=== PATIENT | female | born 1940 | race Caucasian/White ===

== ENCOUNTER → 2017-03-12 | Outpatient (CLI) | payer OTHER ==
[~2017-03-12] MED LIST: ALBUAER2 INH; ASPCH81X PO; BTH25 PO; CHOL1CAP57 PO; DOXA2TAB PO; EVS60 PO; GABA-112 PO; GLC/500 PO; HYDR-5688 PO; LEVO75TA PO; MULT-506 PO; OMEG10007 PO; SIMV10TA2 PO; SYMIN/8045 INH; [UNRECOGNIZED DRUG - CODE] PO
[2017-03-12 14:13] VITALS: BP 128/76; PULSE 74; TEMP 36.6; O2SAT 96
--- NOTE | 2017-03-12 15:07 | Radiation Oncology Follow-Up ---
Radiation Oncology Follow-Up Date of Visit Mar 12, 2017. Reason For Visit Annual follow-up Radiation Completion Date Hypo - 08/09/13 Diagnosis (1) Carcinoma in situ of breast Status: Resolved Onset Date: 06/03/2013 Stage: 0 Permanent Comment: Abnormal right breast 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, stage [id number] Status post completion of radiation therapy utilizing hypo-fractionation completed 08/09/2013 received 5006 cGy Last Edited By: Joann Elliott on Mar 22, 2015 16:00 History of Present Illness Ms. Edwards is a 77-year-old female who has been followed with serial mammograms. On October 29, 2011the patient underwent a mammogram that showed suspicious calcifications in the right breast. Recommendation was that this be repeated in approximately 6 months. On April 29, 2013 the patient underwent a repeat screening mammogram. In the right breast greater than 10 punctate and round calcifications are distributed in a cluster with some linearity present at the 3:00 posterior depth position. The left breast is unremarkable. These were felt to be suspicious and given a BI-RAD code 4B with recommended biopsy. The patient was seen by Dr. Scout Leach for evaluation and treatment recommendations. He agreed with the recommendation of a needle biopsy. This was performed on June 03. Localization lumpectomy was ultimately performed. This confirmed a high-grade DCIS with comedonecrosis. The high-grade DCIS was noted to be extensively distributed in the tissue and extends multiple centimeters as measured on a glass slide. It was present in 7-16 out of 20 blocks en toto. An infiltrating carcinoma was seen. The margin was free but close at 0.5 cm. Estrogen receptors were taken and were positive. Progesterone receptors were evaluated and were positive. Case [id number]. 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 The patient returned to discuss adjuvant treatment options with Dr. Leach. She is not a candidate for hormonal therapy. He had asked that we see this patient in referral to evaluate her as a candidate for accelerated partial breast irradiation. She will return to our office for CT simulation. She was found to be a good candidate for hypo-fractionation. Interim History She's been doing well over this past year. She has noted no changes to her breast. She has noticed no masses or tenderness and no change of the axilla. She has noticed no swelling of her arm. She is up-to-date on mammography. She had a mammogram at [facility] 05/13/2016. This was negative with no evidence of malignancy. Normal interval follow-up was recommended in 12 months. BI-RADS Category 1. Allergies Coded Allergies: Niacin (Verified Allergy, Unknown, FLUSHING AND DIZZINESS, 11/13/15) Amoxicillin (Verified Adverse Reaction, Intermediate, UTI'S, 01/15/12) Home Medications Scheduled Aspirin (Aspirin Chewable), 81 MG PO DAILY Bethanechol Chl (Bethanechol Chloride), 50 MG PO DIRECTED Cholecalciferol (Vitamin D3), 1,000 MG PO DAILY Doxazosin Mesylate (Cardura), 1 MG PO HS Fish Oil ([place]-3), 2 CAP PO DAILY Gabapentin (Neurontin), 100 MG PO TID Levothyroxine Sodium (Synthroid), 0.5 TAB PO 1 x weekly Metformin Hcl (Glucophage), 500 MG PO DAILY Raloxifene (Evista *), 60 MG PO DAILY Simvastatin (Zocor), 1 TAB PO HS Scheduled PRN Albuterol (Ventolin Hfa), 2 PUFF INH QID PRN for Cough Budesonide/Formoterol Fumarate (Symbicort 80/4.5 Inhaler), 2 PUFFS INH BID PRN for Cough Hydrocodone/Acetaminophen 5MG/325MG ([place] 5MG/325MG), 1-2 TABLET PO q 4-6hrs prn PRN Levothyroxine Sodium (Synthroid), 1 TAB PO DAILY PRN for 6 x weekly Naproxen (Naproxen Ec), 1 TAB PO DAILY PRN for Pain Miscellaneous Medications Multivitamin (Multivitamin), 1 TAB PO Review of Systems Gastrointestinal: Symptoms: WNL Oral: Symptoms: No Problems Respiratory: Symptoms: WNL Urinary: Symptoms: WNL Comments: Trouble starting urinating in AM - drips Skin: Symptoms: No Problems Breast: Right Upper Arm Measurement: 33.8 Right Mid Arm Measurement: 26.7 Right Wrist Measurement: 17.7 Left Upper Arm Measurement: 36.7 Left Mid Arm Measurement: 27.8 Left Wrist Measurement: 17.5 Arm Dominence: Right Physical Exam Vital Signs Date Time Temp Pulse Resp B/P (MAP) Pulse Ox O2 Delivery O2 Flow Rate FiO2 03/12/17 14:13 36.6 74 16 128/76 96 Fatigue: None General Appearance: no apparent distress Eyes: normal inspection, EOMI ENT: normal ENT inspection, hearing grossly normal Neck: no adenopathy Respiratory/Chest: lungs clear, no respiratory distress, no accessory muscle use Breast: Breast examination reveals well-healed incision of the right breast. There are no masses or tenderness no axillary adenopathy. There are mild fibrous changes in the area of the incision. There is no telangiectasia. Using the Drake score cosmesis she has a good outcome. The left pressure no masses or tenderness and no axillary adenopathy. Cardiovascular: regular rate, rhythm, no gallop, no murmur Extremities: no pedal edema Neurologic/Psychiatric: no motor/sensory deficits, alert, normal mood/affect Skin: warm/dry Assessment & Plan Plan: Continue regular follow-up with Dr. Leach and Dr. Clay. Continue with scheduled mammography. Patient had requested to continue follow-up with Dr. Clay and Dr. Leach at this point in time. We were in agreement. A follow- up appointment with our office was not given. She may call if she has any questions or concerns. Total Time In Follow-Up I spent 20 minutes speaking to the patient and performing examination. I spoke 15 minutes reviewing information and completing this note. Copy To Scout Leach M.D.; Anuj Ramos M.D. Problem Qualifiers (1) Carcinoma in situ of breast: Laterality: right
== END | disposition home or self-care (01) ==
LOC: C.ONC 14:09
PROVIDERS: ATTEND Physician Assistant Medical
DX: Z08 Encounter for follow-up examination after completed treatment for malignant neoplasm (principal); Z92.3 Personal history of irradiation; Z85.3 Personal history of malignant neoplasm of breast

== ENCOUNTER → 2017-06-03 | Outpatient (CLI) | payer OTHER ==
--- NOTE | 2017-06-03 16:37 | DIAGNOSTIC IMAGING REPORT ---
MRI LUMBAR SPINE W/O CONTRAST CLINICAL HISTORY: Persistent low back pain with bilateral leg radiculopathy. TECHNIQUE: Sagittal and axial T1, T2 and STIR images were obtained. COMPARISON STUDY: No previous studies for comparison. OBSERVATIONS: The vertebral bodies and posterior elements appear intact. There is no abnormal bony signal present to suggest a marrow replacement process. L1-2: There is a circumferential disc bulge present. There is minimal spinal canal narrowing. There is mild left-sided foraminal narrowing L2-3: There is a circumferential disc bulge and small central disc protrusion. This mildly effaces the anterior aspect the thecal sac. There is mild spinal stenosis. There is no significant foraminal narrowing L3-4: There is a circumferential disc bulge present. There is moderate to severe spinal stenosis. There is bilateral foraminal narrowing. L4-5: There is a circumferential disc bulge present. There is moderate spinal stenosis. There is severe left-sided foraminal narrowing and mild right-sided foraminal narrowing. L5-S1: There is a circumferential disc bulge. There is advanced facet joint arthropathy. There is mild to moderate spinal stenosis. There is no significant foraminal narrowing. Right-sided facet joint spurs likely impinge on the right S1 nerve root. The conus medullaris and cauda equina appear normal. IMPRESSION: Advanced multilevel spondylitic changes with multilevel spinal stenosis. The stenosis is moderate at the L4-5 and L5-S1 levels. The stenosis is moderate to severe at the L3-4 level. There is multilevel foraminal narrowing, which is severe on the left at the L4-5 level.. At the L5-S1 level, right-sided facet joint spurs likely impinge on the right S1 nerve root. Electronically signed by: Andres Medina M.D. 06/03/2017 4:35 PM Dictated Date/Time: 06/03/2017 4:24 PM
== END | disposition home or self-care (01) ==
LOC: C.MRIBC 15:12
PROVIDERS: ATTEND Physician Assistant
DX: M54.5 Low back pain (principal); M48.061 Spinal stenosis, lumbar region without neurogenic claudication; M48.07 Spinal stenosis, lumbosacral region; M47.816 Spondylosis without myelopathy or radiculopathy, lumbar region

== ENCOUNTER → 2017-12-07 | Outpatient (CLI) | payer OTHER ==
--- NOTE | 2017-12-07 13:14 | DIAGNOSTIC IMAGING REPORT ---
ANKLE BRACHIAL INDEX COMPLETE CLINICAL HISTORY: OTHER ATHEROSCLEROSIS OF [place] ARTERIES COMPARISON STUDY: None. FINDINGS: The right ankle-brachial index measured with the posterior tibial artery was 0.98 and the dorsalis pedis artery was 0.95. The left ankle-brachial index measured with the posterior tibial artery 1.04 and the dorsalis pedis artery was 1.02. IMPRESSION: Normal bilateral ankle brachial indices as described above. Electronically signed by: Og Bahena M.D. 12/07/2017 1:12 PM Dictated Date/Time: 12/07/2017 1:12 PM
== END | disposition home or self-care (01) ==
LOC: C.ULTR 12:23
PROVIDERS: ATTEND Podiatrist Foot & Ankle Surgery
DX: I70.293 Other atherosclerosis of native arteries of extremities, bilateral legs (principal)

== ENCOUNTER 2021-05-17 12:05 | Inpatient (IN) ==
--- NOTE | 2021-05-17 13:50 | Emergency Department Note ---
Impression & Plan Acute hypoxemic respiratory failure, UTI (urinary tract infection), Closed rib fracture ED Provider Note NAME: JOSE A CURIEL AGE: 81 SEX: F : 1940 ARRIVES VIA: Walk-In INFORMANT: Patient, ED PROVIDER(S): Anson Garcia MD Chief Complaint: Cough, short of breath HPI: Patient does presents with headache shortness of breath and productive cough that began about 1 week prior. The patient did have a fall that time striking her left chest. The patient does not take blood thinning medications. Patient denies any fevers or chills. Patient is a non-smoker. The patient is vaccinated for Covid. The patient states that she has no known sick contacts. Patient has had nausea but without vomiting. Patient has had decreased appetite. Patient does have a sick treated shortness of breath. Patient denies history of VTE or PE the patient has no prior history of heart or lung disease. Patient does not complain of lower extremity edema. No recent surgeries or hospitalizations. ROS: See HPI for pertinent positives and negatives. A total of 10 systems were reviewed and otherwise negative. Past medical history: See below Surgical history: See below Social history: See below Physical Exam: GENERAL: NAD, non-toxic. EYE EXAM: Normal conjunctiva. PERRL, no anisocoria and EOM's grossly intact w/o pain. NECK: Supple, no nuchal rigidity, no adenopathy, non-tender. No signs of meningismus. Chest: Mild reproducible lower costal margin pain. LUNGS: Sonorous breath sounds throughout. Normal chest wall mechanics. HEART: NSR, no MRG. ABDOMEN: Abdomen soft, non-tender, normo-active bowel sounds, no masses, no rebound or guarding. BACK: No CVA TTP. SKIN: No rashes and no bruising. UPPER EXTREMITIES: Upper extremities are grossly normal. LOWER EXTREMITIES: Grossly normal, no edema. NEURO EXAM: A&O x3, cranial nerves II-XII grossly intact, normal speech, moves all 4 extremities on command w/o issue. Differential diagnoses: Reactive airway disease, pneumonia, pneumothorax, COPD, CHF, infections, cardiac ischemia, pulmonary embolism, musculoskeletal, gastrointestinal, as well as other pathologies. Course: Patient was seen and evaluated the bedside. Full history physical exam was performed. EKG interpreted by me Normal sinus rhythm, rate 85, normal intervals, normal axis. Imaging Studies: See Below Cardiac monitoring: An order was placed for continuous cardiac monitoring. The monitor shows a rate of 95 with sinus rhythm. MDM: Patient was seen due to concern for cough and shortness of breath. Blood work is obtained along with a chest x-ray and with swab. The patient was hypoxemic to 82% was placed on 4 L nasal cannula. Patient is white count of 7 with a normal H&H and platelet count. The patient's kidney function is unremarkable. Calcium slightly low at 8.1. Troponin is not detectable. Patient's EKG does not show any obvious ischemic changes. The patient does have bacteria whites and leuks along with positive nitrites. Patient may have more atelectasis based on chest x-ray but will cover for urine and chest with Rocephin. The patient was also ordered doxycycline for community-acquired pneumonia coverage. Given the patient's oxygen requirement I did speak with the on-call hospitalist and the patient was admitted to the medicine service. Critical Care: I have personally spent 47 minutes of critical care time in direct management of this patient. This includes bedside care, interpretation of diagnostic studies, and testing, discussion with consultants, patient, and family members, and other require inpatient management activities. This 47 minutes is in excess of all separately billable procedures. Past Med/Surg History Medical History Carcinoma in situ of breast (06/03/13) "Abnormal right breast 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, stage pTisNX Status post completion of radiation therapy utilizing hypo-fractionation completed 08/09/2013 received 5006 cGy " Colon cancer HLD (hyperlipidemia) Osteoarthritis Thyroid cancer Surgical History H/O thyroidectomy History of bladder surgery History of cataract surgery History of cholecystectomy History of colon resection History of hysterectomy Family History Mother Colorectal cancer Other Diabetes Social History Smoking Status: Never smoker Hx Alcohol Use: No Hx Substance Use: No Preferred Language: [place] Feels Safe at Home: Yes Allergies Allergies Allergy/AdvReac Type Severity Reaction Status Date / Time niacin Allergy Unknown FLUSHING Verified 07/07/19 14:19 AND DIZZINESS amoxicillin AdvReac Intermediate UTI'S Verified 07/07/19 14:19 Home Meds Home Medications Medication Instructions Recorded Confirmed ascorbate calcium (vitamin C) 500 500 mg PO DAILY 07/07/19 05/17/21 mg tablet bethanechol chloride 50 mg tablet 50 mg PO TID tab 07/07/19 05/17/21 diclofenac sodium 1 % topical gel 2 gm TOP .COMPLEX 07/07/19 05/17/21 (Voltaren) duloxetine 20 mg capsule,delayed 20 mg PO DAILY cap 07/07/19 05/17/21 release gabapentin 300 mg tablet 300 mg PO UD 07/07/19 05/17/21 levothyroxine 150 mcg tablet 150 mcg PO DAILY 07/07/19 05/17/21 multivitamin (Daily Multi-Vitamin) 1 tab PO DAILY 07/07/19 05/17/21 omega-3 fatty acids 1,000 mg 1,000 mg PO DAILY 07/07/19 05/17/21 capsule (Fish Oil Concentrate) raloxifene 60 mg tablet 60 mg PO DAILY 07/07/19 05/17/21 rosuvastatin 10 mg tablet 10 mg PO DAILY 07/07/19 05/17/21 sennosides 8.6 mg-docusate sodium 2 cap PO HS 07/07/19 05/17/21 50 mg capsule (Senna Plus) trazodone 50 mg tablet 50 mg PO HS 07/07/19 05/17/21 Results & Data (ED) Vital Signs Vital Signs - 24 hr 05/17/21 12:48 05/17/21 14:17 05/17/21 14:30 Temperature 36.5 C Temperature Source Temporal Artery Scan Pulse Rate 93 H 86 86 Pulse Rate [Finger] Pulse Rate [Left Finger] 85 Pulse Rate from SpO2 Sensor 86 Pulse Rhythm Regular Respiratory Rate 20 21 26 H Respiratory Effort / Characteristics Non-Labored Respiratory Depth Normal Respiratory Pattern Regular Blood Pressure 147/89 H 160/86 H Blood Pressure [Right Arm] 160/86 H Blood Pressure Mean 108 110 Blood Pressure Mean [Right Arm] 110 Blood Pressure Position [Right Arm] Sitting Pulse Oximetry 91 90 82 L Oxygen Delivery Method Room Air Room Air Oxygen Flow Rate Sepsis Recent Fever Within 48 Hours No Sepsis New/Unexplained Change in Mental Status No Sepsis Action Taken by Nursing No Action Required 05/17/21 14:47 05/17/21 16:26 05/17/21 16:30 Temperature Temperature Source Pulse Rate 77 78 Pulse Rate [Finger] Pulse Rate [Left Finger] Pulse Rate from SpO2 Sensor 79 78 Pulse Rhythm Respiratory Rate 23 23 Respiratory Effort / Characteristics Respiratory Depth Respiratory Pattern Blood Pressure 148/78 H 136/73 Blood Pressure [Right Arm] Blood Pressure Mean 101 94 Blood Pressure Mean [Right Arm] Blood Pressure Position [Right Arm] Pulse Oximetry 95 94 97 Oxygen Delivery Method Nasal Cannula Nasal Cannula Oxygen Flow Rate 4 4 Sepsis Recent Fever Within 48 Hours Sepsis New/Unexplained Change in Mental Status Sepsis Action Taken by Nursing 05/17/21 16:57 05/17/21 17:00 05/17/21 17:30 Temperature Temperature Source Pulse Rate 70 85 Pulse Rate [Finger] 75 Pulse Rate [Left Finger] Pulse Rate from SpO2 Sensor 72 85 Pulse Rhythm Respiratory Rate 18 21 26 H Respiratory Effort / Characteristics Spontaneous Respiratory Depth Respiratory Pattern Blood Pressure 123/76 130/64 Blood Pressure [Right Arm] Blood Pressure Mean 91 86 Blood Pressure Mean [Right Arm] Blood Pressure Position [Right Arm] Pulse Oximetry 95 99 96 Oxygen Delivery Method Nasal Cannula Nasal Cannula Oxygen Flow Rate 4 4 Sepsis Recent Fever Within 48 Hours Sepsis New/Unexplained Change in Mental Status Sepsis Action Taken by Nursing 05/17/21 18:00 Temperature Temperature Source Pulse Rate 96 H Pulse Rate [Finger] Pulse Rate [Left Finger] Pulse Rate from SpO2 Sensor 95 H Pulse Rhythm Respiratory Rate 18 Respiratory Effort / Characteristics Respiratory Depth Respiratory Pattern Blood Pressure 117/68 Blood Pressure [Right Arm] Blood Pressure Mean 84 Blood Pressure Mean [Right Arm] Blood Pressure Position [Right Arm] Pulse Oximetry 95 Oxygen Delivery Method Oxygen Flow Rate Sepsis Recent Fever Within 48 Hours Sepsis New/Unexplained Change in Mental Status Sepsis Action Taken by Retirement Medications Current Medication List: was personally reviewed by me Laboratory Data Attestation: I reviewed the patient's lab results. Result diagrams: 05/17/21 14:34 05/17/21 14:34 Lab Results 05/17/21 05/17/21 05/17/21 Range/Units 14:34 14:34 16:14 WBC 7.90 (4.8-10.8) K/uL RBC 4.70 (4.2-5.4) M/uL Hgb 15.0 (12.0-16.0) g/dL Hct 47.0 (37-47) % MCV 100.0 (80-100) fL MCH 31.9 (25-34) pg MCHC 31.9 L (32-36) g/dL RDW Std Deviation 50.1 H (36.4-46.3) fL RDW Coeff of Raquel 13.6 (11.5-14.5) % Plt Count 160 (130-400) K/uL MPV 11.5 H (7.4-10.4) fL Immature Gran % (Auto) 0.1 % Neut % (Auto) 83.0 % Lymph % (Auto) 13.3 % [place] % (Auto) 3.5 % Eos % (Auto) 0.0 % Baso % (Auto) 0.1 % Neut # (Auto) 6.55 H (1.4-6.5) K/uL Lymph # (Auto) 1.05 L (1.2-3.4) K/uL [place] # (Auto) 0.28 (0.11-0.59) K/uL Eos # (Auto) 0.00 (0-0.5) K/uL Baso # (Auto) 0.01 (0-0.2) K/uL Immature Gran # (Auto) 0.01 (0.00-0.02) K/uL Sodium 140 (136-145) mmol/L Potassium 4.1 (3.5-5.1) mmol/L Chloride 105 (98-107) mmol/L Carbon Dioxide 30 (21-32) mmol/L Anion Gap 5.0 (3-11) BUN 13 (7-18) mg/dl Creatinine 0.81 (0.6-1.2) mg/dl Est Cr Clr Drug Dosing 68.3 ml/min Est GFR ( Amer) 79.5 ml/min Est GFR (Non-Af Amer) 68.6 ml/min BUN/Creatinine Ratio 16.1 (10-20) Glucose 130 H (70-99) mg/dl Calcium 8.1 L (8.5-10.1) mg/dl Total Bilirubin 0.4 (0.2-1) mg/dl AST 19 (15-37) U/L ALT 26 (12-78) U/L Alkaline Phosphatase 145 H (45-117) U/L Troponin I < 0.015 (0-0.045) ng/ml Total Protein 7.0 (6.4-8.2) gm/dl Albumin 3.4 (3.4-5.0) gm/dl Globulin 3.6 (2.5-4.0) gm/dl Albumin/Globulin Ratio 0.9 (0.9-2) TSH 0.483 (0.300-4.500) uIu/ml Urine Color Urine Appearance (Clear) Urine pH (4.5-7.5) Ur Specific [place] (1.000-1.030) Urine Protein (Negative) Urine Glucose (UA) (Negative) Urine Ketones (Negative) Urine Blood (Negative) Urine Nitrite (Negative) Urine Bilirubin (Negative) Urine Urobilinogen (Negative) Ur Leukocyte Esterase (Negative) Urine WBC (Auto) (0-5) /hpf Urine RBC (Auto) (0-4) /hpf U Hyaline Cast (Auto) (0-5) /lpf U Epithel Cells (Auto) (0-5) /lpf Urine Bacteria (Auto) (Negative) COVID-19 Eval Order Covid19 at [facility] SARS-CoV-2 (PCR) (Negative) 05/17/21 05/17/21 Range/Units 16:14 16:30 WBC (4.8-10.8) K/uL RBC (4.2-5.4) M/uL Hgb (12.0-16.0) g/dL Hct (37-47) % MCV (80-100) fL MCH (25-34) pg MCHC (32-36) g/dL RDW Std Deviation (36.4-46.3) fL RDW Coeff of Raquel (11.5-14.5) % Plt Count (130-400) K/uL MPV (7.4-10.4) fL Immature Gran % (Auto) % Neut % (Auto) % Lymph % (Auto) % [place] % (Auto) % Eos % (Auto) % Baso % (Auto) % Neut # (Auto) (1.4-6.5) K/uL Lymph # (Auto) (1.2-3.4) K/uL [place] # (Auto) (0.11-0.59) K/uL Eos # (Auto) (0-0.5) K/uL Baso # (Auto) (0-0.2) K/uL Immature Gran # (Auto) (0.00-0.02) K/uL Sodium (136-145) mmol/L Potassium (3.5-5.1) mmol/L Chloride (98-107) mmol/L Carbon Dioxide (21-32) mmol/L Anion Gap (3-11) BUN (7-18) mg/dl Creatinine (0.6-1.2) mg/dl Est Cr Clr Drug Dosing ml/min Est GFR ( Amer) ml/min Est GFR (Non-Af Amer) ml/min BUN/Creatinine Ratio (10-20) Glucose (70-99) mg/dl Calcium (8.5-10.1) mg/dl Total Bilirubin (0.2-1) mg/dl AST (15-37) U/L ALT (12-78) U/L Alkaline Phosphatase (45-117) U/L Troponin I (0-0.045) ng/ml Total Protein (6.4-8.2) gm/dl Albumin (3.4-5.0) gm/dl Globulin (2.5-4.0) gm/dl Albumin/Globulin Ratio (0.9-2) TSH (0.300-4.500) uIu/ml Urine Color Yellow Urine Appearance Clear (Clear) Urine pH 6.0 (4.5-7.5) Ur Specific [place] 1.011 (1.000-1.030) Urine Protein Negative (Negative) Urine Glucose (UA) Negative (Negative) Urine Ketones Negative (Negative) Urine Blood Negative (Negative) Urine Nitrite Positive A (Negative) Urine Bilirubin Negative (Negative) Urine Urobilinogen Negative (Negative) Ur Leukocyte Esterase 1+ H (Negative) Urine WBC (Auto) 10-30 H (0-5) /hpf Urine RBC (Auto) 0-4 (0-4) /hpf U Hyaline Cast (Auto) 1-5 (0-5) /lpf U Epithel Cells (Auto) 5-10 H (0-5) /lpf Urine Bacteria (Auto) 4+ H (Negative) COVID-19 Eval Order SARS-CoV-2 (PCR) NEGATIVE (Negative) Administered Medications Discontinued Medications Acetaminophen (Acetaminophen 500 Mg Tab) 1,000 mg PO NOW STA Stop: 05/17/21 14:09 Last Admin: 05/17/21 14:22 Dose: 1,000 mg Documented by: [id number] Albuterol (Albut/Ipratrop 3mg/0.5mg Neb 3 Ml Vial) 6 ml NEB NOW STA Stop: 05/17/21 16:19 Last Admin: 05/17/21 16:56 Dose: 6 ml Documented by: [id number] Benzonatate (Benzonatate 100 Mg Capsule) 100 mg PO NOW ONE Stop: 05/17/21 14:09 Last Admin: 05/17/21 14:23 Dose: 100 mg Documented by: [id number] Doxycycline Hyclate (Doxycycline Hyclate 100 Mg Cap) 100 mg PO NOW STA Stop: 05/17/21 16:11 Last Admin: 05/17/21 16:44 Dose: 100 mg Documented by: [id number] Sodium Chloride (Nss 1000ml) 1,000 mls @ 999 mls/hr IV .Q1H1M CODY Stop: 05/17/21 15:15 Last Admin: 05/17/21 14:33 Dose: 999 mls/hr Documented by: [id number] Ceftriaxone Sodium (Rocephin) 2,000 mg in 70 mls @ 140 mls/hr IV NOW STA Stop: 05/17/21 16:39 Last Admin: 05/17/21 16:44 Dose: 140 mls/hr Documented by: [id number] Lidocaine (Lidocaine 5% 1 Patch) 1 patch TD NOW STA Stop: 05/17/21 14:10 Last Admin: 05/17/21 14:33 Dose: 1 patch Documented by: [id number] Ondansetron HCl (Ondansetron Inj 2 Mg/Ml 2 Ml Vial) 4 mg IV NOW STA Stop: 05/17/21 14:09 Last Admin: 05/17/21 14:33 Dose: 4 mg Documented by: [id number] Imaging Data Radiologist's Impression: Ribs w/Chest X-Ray 05/17/21 14:08 XR ribs LT min 2V w [id number] CLINICAL HISTORY: fall, cough, rib pain COMPARISON: Chest radiograph December 22, 2012. FINDINGS: No pneumothorax or pleural effusion is noted. Mild left basilar opacity favors atelectasis. There is mild cardiomegaly without evidence for pulmonary edema. Mitral annular calcification is incidentally noted. There are age indeterminate fractures of the anterior left fifth and sixth ribs. IMPRESSION: 1. No pneumothorax. Age indeterminate fractures of the anterior left fifth and sixth ribs. 2. Mild left basilar opacity which favors atelectasis. ACT 112: Negative or not required by law. Electronically signed by: Karl Taylor M.D. 05/17/2021 3:42 PM Discharge Plan Visit Data Chief Complaint: Respiratory Problems Stated Complaint: COUGH,WHEEZING,HEADACHE,LOW OXYGEN ED Provider: Anson Garcia Discharge Problem: Acute hypoxemic respiratory failure, UTI (urinary tract infection), Closed rib fracture Patient Disposition: Admitted As Inpatient Forms Stand Alone Forms: Counts Include [facility] Prescriptions Prescriptions: No Action trazodone 50 mg tablet 50 mg PO HS RF: 0 rosuvastatin 10 mg tablet 10 mg PO DAILY RF: 0 duloxetine 20 mg capsule,delayed release(DR/EC) 20 mg PO DAILY RF: 0 Senna Plus 8.6-50 mg capsule 2 cap PO HS RF: 0 gabapentin 300 mg tablet 300 mg PO UD RF: 0 bethanechol chloride 50 mg tablet 50 mg PO TID RF: 0 multivitamin [Daily Multi-Vitamin] tablet 1 tab PO DAILY RF: 0 diclofenac sodium [Voltaren] 1 % gel 2 gm TOP .COMPLEX RF: 0 levothyroxine 150 mcg tablet 150 mcg PO DAILY RF: 0 raloxifene 60 mg tablet 60 mg PO DAILY RF: 0 omega-3 fatty acids [Fish Oil Concentrate] 1,000 mg capsule 1,000 mg PO DAILY RF: 0 ascorbate calcium (vitamin C) 500 mg tablet 500 mg PO DAILY RF: 0 Referrals Referrals: Anuj Ramos [Primary Care Provider] -
[2021-05-17] MEDS ORDERED: BENZONATATE 100 MG CAPSULE PO ONE (14:08)
[2021-05-17] MEDS ORDERED: ACETAMINOPHEN 500 MG TAB PO STA (14:08)
[2021-05-17] MEDS ORDERED: ONDANSETRON INJ 2 MG/ML 2 ML VIAL IV STA (14:08)
[2021-05-17] MEDS ORDERED: LIDOCAINE 5% 1 PATCH TD STA (14:09)
[2021-05-17] MEDS ORDERED: SODIUM CHLORIDE 0.9% 1000ML 1,000 ML IV SCH (14:15)
[2021-05-17 14:43] LABS: Basophils # (auto) 0.01 K/uL (0-0.2); Basophils % (auto) 0.1 %; Immature Granulocytes # (auto) 0.01 K/uL (0.00-0.02); Immature Granulocytes % (auto) 0.1 %; Lymphocytes # (auto) 1.05 K/uL (1.2-3.4); Lymphocytes % (auto) 13.3 %; Mean Corpuscular Hemoglobin 31.9 pg (25-34); Mean Corpuscular Hgb Conc 31.9 g/dL (32-36); Mean Platelet Volume 11.5 fL (7.4-10.4); Monocytes # (auto) 0.28 K/uL (0.11-0.59); Monocytes % (auto) 3.5 %; Neutrophils # (auto) 6.55 K/uL (1.4-6.5); Platelet Count 160 K/uL (130-400); RDW Coefficient of Variation 13.6 % (11.5-14.5); RDW Standard Deviation 50.1 fL (36.4-46.3)
[2021-05-17 15:01] LABS: Alanine Aminotransferase 26 U/L (12-78); Albumin Level 3.4 gm/dl (3.4-5.0); Aspartate Aminotransferase 19 U/L (15-37); BUN Creatinine Ratio 16.1 (10-20); Blood Urea Nitrogen 13 mg/dl (7-18); Calcium 8.1 mg/dl (8.5-10.1); Carbon Dioxide 30 mmol/L (21-32); Chloride 105 mmol/L (98-107); Creatinine Clr Calc Pharmacy 68.3 ml/min; Est GFR (African American) 79.5 ml/min; Est GFR (Non-African American) 68.6 ml/min; Glucose 130 mg/dl (70-99); Potassium 4.1 mmol/L (3.5-5.1); Sodium 140 mmol/L (136-145)
[2021-05-17 15:12] LABS: Albumin Globulin Ratio 0.9 (0.9-2); Alkaline Phosphatase 145 U/L (45-117); Bilirubin,Total 0.4 mg/dl (0.2-1); Globulin 3.6 gm/dl (2.5-4.0); Thyroid Stimulating Hormone 0.483 uIu/ml (0.300-4.500); Troponin I < 0.015 ng/ml (0-0.045)
--- NOTE | 2021-05-17 15:32 | Electrocardiogram Report ---
Test Reason : Blood Pressure : / mmHG Vent. Rate : 085 BPM Atrial Rate : 085 BPM P-R Int : 126 ms QRS Dur : 082 ms QT Int : 402 ms P-R-T Axes : 055 058 064 degrees QTc Int : 478 ms Normal sinus rhythm with sinus arrhythmia Normal ECG When compared with ECG of 22-DEC-2012 14:52, No significant change was found Confirmed by Dg Bacon ([id number]) on 05/17/2021 3:31:43 PM Referred By: Confirmed By:Dg Bacon
--- NOTE | 2021-05-17 15:43 | XRay Report ---
XR ribs LT min 2V w CXR1V CLINICAL HISTORY: fall, cough, rib pain COMPARISON: Chest radiograph December 22, 2012. FINDINGS: No pneumothorax or pleural effusion is noted. Mild left basilar opacity favors atelectasis . There is mild cardiomegaly without evidence for pulmonary edema. Mitral annular calcification is in cidentally noted. There are age indeterminate fractures of the anterior left fifth and sixth ribs. IMPRESSION: 1. No pneumothorax. Age indeterminate fractures of the anterior left fifth and sixth ribs. 2. Mild left basilar opacity which favors atelectasis. ACT 112: Negative or not required by law. Electronically signed by: Karl Taylor M.D. 05/17/2021 3:42 PM
[2021-05-17] MEDS ORDERED: cefTRIAXone SODIUM 2,000 MG/70 ML BAG IV STA (16:10)
[2021-05-17] MEDS ORDERED: DOXYCYCLINE HYCLATE 100 MG CAP PO STA (16:10)
[2021-05-17] MEDS ORDERED: ALBUT/IPRATROP 3MG/0.5MG NEB 3 ML VIAL NEB STA (16:18)
[2021-05-17 16:40] LABS: Appearance Urine Clear (Clear); Bacteria Urine Automated 4+ (Negative); Bilirubin Urine Negative (Negative); Blood Urine Negative (Negative); Color Urine Yellow; Glucose Urine UA Negative (Negative); Ketones Urine Negative (Negative); Leukocyte Esterase Urine 1+ (Negative); Nitrite Urine Positive (Negative); Protein Urine Negative (Negative); RBC Urine Automated 0-4 /hpf (0-4); Specific Gravity Urine 1.011 (1.000-1.030); Urobilinogen Urine Negative (Negative)
--- NOTE | 2021-05-17 17:57 | History & Physical Report ---
Date of Service May 17, 2021 Assessment & Plan (1) Acute hypoxemic respiratory failure: Plan: Patient is 81-year-old female with PMH 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 Denies fever/chills. Is vaccinated for COVID-19. In ER patient afebrile, no tachycardia or tachypnea, BP stable. Was noted to desaturate to 82% on room air up to 95% on 4 L oxygen via nasal cannula. No leukocytosis. Negative COVID-19 PCR CXR: Mild left basilar opacity which favors atelectasis In ER was given 1L NSS, doxycycline p.o., Rocephin 2 g IV, albuterol neb Atelectasis versus pneumonia Blood cultures pending Procalcitonin pending, RSV, influenza pending Continue Rocephin Supplemental oxygen as needed Scheduled nebs Incentive spirometry, flutter valve CBC, BMP in a.m. (2) UTI (urinary tract infection): Plan: UA + nitrite, 1+ leuk esterase, 4+ bacteria. 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 See addendum History of Present Illness Chief Complaint: SOB, cough Primary Care Provider: Anuj Ramos Patient is 81-year-old female with PMH 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 Patient reports cough initially productive however now does not feels productive. Increased shortness of breath last night. Patient reports PCP placed on Z-Candido 2 days ago. Patient has not had any improvement. States yesterday had diarrhea. Complaining of frontal headache past 2 days. Also complains of nasal congestion. Denies loss of taste or smell. States has urinary frequency. Denies dysuria, hematuria patient reports had a fall 2 weeks ago and when she fell she reports she hit her head and felt like things went black for a second. Patient reports remembers incident and denies any recurrent falls, syncope or dizziness. Since fall she has had left chest wall discomfort, aggravated with coughing and movement. Reports had 2 doses COVID-19 vaccine. She reports family members ill with upper respiratory symptoms. Denies fever/chills, diaphoresis, N/V/C, vision changes, neck pain, palpitations, sore throat, choking, otalgia, abdominal pain, paresthesias, weakness, extremity weakness, extremity edema, rashes. In ER patient afebrile, no tachycardia or tachypnea, BP stable. Was noted to desaturate to 82% on room air up to 95% on 4 L oxygen via nasal cannula. No leukocytosis. CXR: Left basilar opacity, left fifth and sixth anterior age- indeterminate rib fractures. UA + nitrite, 1+ leuk esterase, 4+ bacteria. In ER was given 1L NSS, doxycycline p.o., Rocephin 2 g IV, albuterol neb Allergies Allergy/AdvReac Type Severity Reaction Status Date / Time niacin Allergy Unknown FLUSHING Verified 07/07/19 14:19 AND DIZZINESS amoxicillin AdvReac Intermediate UTI'S Verified 07/07/19 14:19 Home Medications Medication Instructions Recorded Confirmed Type ascorbate calcium (vitamin C) 500 500 mg PO DAILY 07/07/19 05/17/21 History mg tablet bethanechol chloride 50 mg tablet 50 mg PO TID tab 07/07/19 05/17/21 History diclofenac sodium 1 % topical gel 2 gm TOP .COMPLEX 07/07/19 05/17/21 History (Voltaren) duloxetine 20 mg capsule,delayed 20 mg PO DAILY cap 07/07/19 05/17/21 History release gabapentin 300 mg tablet 300 mg PO UD 07/07/19 05/17/21 History levothyroxine 150 mcg tablet 150 mcg PO DAILY 07/07/19 05/17/21 History multivitamin (Daily Multi-Vitamin) 1 tab PO DAILY 07/07/19 05/17/21 History omega-3 fatty acids 1,000 mg 1,000 mg PO DAILY 07/07/19 05/17/21 History capsule (Fish Oil Concentrate) raloxifene 60 mg tablet 60 mg PO DAILY 07/07/19 05/17/21 History rosuvastatin 10 mg tablet 10 mg PO DAILY 07/07/19 05/17/21 History sennosides 8.6 mg-docusate sodium 2 cap PO HS 07/07/19 05/17/21 History 50 mg capsule (Senna Plus) trazodone 50 mg tablet 50 mg PO HS 07/07/19 05/17/21 History Past Med/Surg History Medical History Carcinoma in situ of breast (06/03/13) "Abnormal right breast 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, stage [id number] Status post completion of radiation therapy utilizing hypo-fractionation completed 08/09/2013 received 5006 cGy " Colon cancer HLD (hyperlipidemia) Osteoarthritis Thyroid cancer Surgical History H/O thyroidectomy History of bladder surgery History of cataract surgery History of cholecystectomy History of colon resection History of hysterectomy Family History Mother Colorectal cancer Other Diabetes Social History Smoking Status: Never smoker Hx Alcohol Use: No Hx Substance Use: No Preferred Language: Amharic Communication Ability: Effective Warp Worker Required: No Beliefs That Will Affect Care: None marital status: / Current Living Situation: Family Current Living Situation Comment: lives with grandchildren Other Information That Helps Us Care for You: No Feels Safe at Home: Yes Safety Concerns: Feels Safe At This Time Assistive Devices: Cane Review of Systems Review of Systems: All systems reviewed & are unremarkable except as noted in HPI & below Physical Exam Physical Exam: General: no acute distress, overweight Head: normocephalic, atraumatic Eyes: conjunctiva non-injected, anicteric ENT: hard of hearing, normal inspection external ears, nose, mucous membranes moist Neck: supple, trachea midline Lungs: On 4L oxygen via NC with sat 95%, able to speak in sentences, +diffuse wheezing throughout CV: RRR, no murmur, no pretibial edema; left chest wall: no ecchymosis, +tenderness to palpation lateral chest wall Abd: normal BS, soft, non-tender Ext: no cyanosis, no calf tenderness Neuro: A&O x 3, no focal deficits noted, normal affect Skin: warm, dry Results & Data Results & Data ([facility]) Vital Signs (Past 12 Hours) Vital Signs Temp Pulse Pulse Pulse Resp BP BP 05/17/21 17:00 70 21 123/76 05/17/21 16:57 75 18 05/17/21 16:30 78 23 136/73 05/17/21 16:26 77 23 148/78 H 05/17/21 14:47 05/17/21 14:30 86 26 H 05/17/21 14:17 86 85 21 160/86 H 160/86 H 05/17/21 12:48 36.5 C 93 H 20 147/89 H Pulse Ox 05/17/21 17:00 99 05/17/21 16:57 95 05/17/21 16:30 97 05/17/21 16:26 94 05/17/21 14:47 95 05/17/21 14:30 82 L 05/17/21 14:17 90 05/17/21 12:48 91 Laboratory Results Short CBC 05/17/21 Range/Units 14:34 WBC 7.90 (4.8-10.8) K/uL Hgb 15.0 (12.0-16.0) g/dL Hct 47.0 (37-47) % Plt Count 160 (130-400) K/uL BMP 05/17/21 14:34 Sodium 140 Potassium 4.1 Chloride 105 Carbon Dioxide 30 BUN 13 Creatinine 0.81 Glucose 130 H Calcium 8.1 L Cardiac Enzymes 05/17/21 Range/Units 14:34 Troponin I < 0.015 (0-0.045) ng/ml Liver Function 05/17/21 Range/Units 14:34 Total Bilirubin 0.4 (0.2-1) mg/dl AST 19 (15-37) U/L ALT 26 (12-78) U/L Alkaline Phosphatase 145 H (45-117) U/L Albumin 3.4 (3.4-5.0) gm/dl Urine 05/17/21 Range/Units 16:30 Urine Color Yellow Urine Appearance Clear (Clear) Urine pH 6.0 (4.5-7.5) Ur Specific [place] 1.011 (1.000-1.030) Urine Protein Negative (Negative) Urine Glucose (UA) Negative (Negative) Diagnostic Findings Ribs w/Chest X-Ray 05/17/21 14:08 XR ribs LT min 2V w CXR1V CLINICAL HISTORY: fall, cough, rib pain COMPARISON: Chest radiograph December 22, 2012. FINDINGS: No pneumothorax or pleural effusion is noted. Mild left basilar opacity favors atelectasis. There is mild cardiomegaly without evidence for pulmonary edema. Mitral annular calcification is incidentally noted. There are age indeterminate fractures of the anterior left fifth and sixth ribs. IMPRESSION: 1. No pneumothorax. Age indeterminate fractures of the anterior left fifth and sixth ribs. 2. Mild left basilar opacity which favors atelectasis. ACT 112: Negative or not required by law. Electronically signed by: Karl Taylor M.D. 05/17/2021 3:42 PM Code Status & VTE Plan VTE Prophylaxis Plan VTE Prophylaxis will be ordered: Yes Supervising Physician Co-Signing Physician Notes Patient is an 81-year-old female with history of breast cancer, colon cancer, thyroid cancer and other medical problems presents with history of worsening cough and shortness of breath since 4 days duration. She admits to having contact with her grandchildren who were sick with similar symptoms as well. She fell 2 weeks ago resulting in rib fractures. Also reports having diarrhea. Please review HPI for complete details of presentation. She was noted to be hypoxic in ED and was placed on supplemental oxygen. She was noted to have left fifth and sixth rib fractures. Urinalysis was suggestive of possible UTI. She was negative for Covid screen. RSV was positive. No leukocytosis noted. She denies any fever, chills. On exam patient is obese, no apparent distress, normocephalic atraumatic, EOMI, coarse breath sounds, S1, S2, no murmur, no pedal edema, abdomen soft, nontender, normal bowel sounds, alert, awake, oriented, grossly no focal deficits. Patient is admitted for management of acute respiratory failure with hypoxia secondary to RSV. Negative procalcitonin. Supportive care with nebs, and IV fluids, pulmonary hygiene. Will consider steroids if needed. Empirically started on Rocephin for possible urinary tract infection. Check stool studies given use of antibiotic and diarrhea. Incentive spirometer to help with pain due to rib fractures. I personally reviewed the record. Patient is interviewed and examined at bedside. Patient's care is coordinated with Shanta Vee PA-C. Please refer to the documentation above for details of patient's presentation and for discussion of other issues.
[2021-05-17 18:39] LABS: RSV by PCR Positive (Negative)
[2021-05-17 18:44] LABS: Influenza A virus by PCR Negative (Negative); Influenza B virus by PCR Negative (Negative)
[2021-05-17] MEDS ORDERED: POLYETHYLENE (MIRALAX) 17 GM PACK PO PRN (22:42)
[2021-05-17] MEDS ORDERED: DICLOFENAC SOD 1% GEL 100 GM TUBE EXT PRN (22:42)
[2021-05-18] MEDS: ACETAMINOPHEN 325 MG TAB PO PRN ×2 (00:06→06:04)
[2021-05-18] MEDS: DOCUSATE SODIUM/SENNA 50/8.6MG TAB PO SCH ×2 (00:11→20:32)
[2021-05-18] MEDS: BETHANECHOL CHL 25 MG TAB PO SCH ×4 (00:11→20:31)
[2021-05-18] MEDS: traZODone HCL 50 MG TAB PO SCH ×2 (00:12→20:34)
[2021-05-18] MEDS: ENOXAPARIN INJ 40 MG/0.4 ML SYR SQ SCH ×2 (00:13→20:32)
[2021-05-18] MEDS: GABAPENTIN 300 MG CAP PO SCH ×4 (00:14→20:33)
[2021-05-18] MEDS: ALBUT/IPRATROP 3MG/0.5MG NEB 3 ML VIAL NEB SCH ×6 (00:15→19:57)
[2021-05-18] MEDS: LEVOTHYROXINE SODIUM 150 MCG TABLET PO SCH (05:47)
[2021-05-18] MEDS: MULTIVITAMIN TAB PO SCH (10:08)
[2021-05-18] MEDS: DULoxetine HCL 20 MG CAP PO SCH (10:08)
[2021-05-18] MEDS: ROSUVASTATIN CALCIUM 10 MG TAB PO SCH (10:08)
[2021-05-18] MEDS: RALOXIFENE HCL 60 MG TAB PO SCH (10:09)
[2021-05-18] MEDS: LIDOCAINE 5% 1 PATCH TD SCH (10:09)
[2021-05-18 11:57] LABS: Hematocrit (blood only) 42.1 % (37-47); Hemoglobin 13.3 g/dL (12.0-16.0); Mean Corpuscular Hemoglobin 31.2 pg (25-34); Mean Corpuscular Hgb Conc 31.6 g/dL (32-36); Mean Corpuscular Volume 98.8 fL (80-100); Mean Platelet Volume 11.3 fL (7.4-10.4); Platelet Count 119 K/uL (130-400); RDW Coefficient of Variation 13.8 % (11.5-14.5); RDW Standard Deviation 49.3 fL (36.4-46.3); Red Blood Count 4.26 M/uL (4.2-5.4); White Blood Count 7.65 K/uL (4.8-10.8)
[2021-05-18 12:08] LABS: BUN Creatinine Ratio 18.3 (10-20); Calcium 7.7 mg/dl (8.5-10.1); Creatinine Clr Calc Pharmacy 68.4 ml/min; Est GFR (African American) 79.5 ml/min; Est GFR (Non-African American) 68.6 ml/min; Magnesium 2.2 mg/dl (1.8-2.4); Potassium 3.9 mmol/L (3.5-5.1)
[2021-05-18 12:29] LABS: HCO3 VBG 32 mmol/L; PCO2 VBG 68 mmHg (38-50); PO2 VBG 21 mmHg; pH VBG 7.29 (7.36-7.41)
[2021-05-18 12:32] LABS: Oxygen Saturation VBG < 60.0 %
--- NOTE | 2021-05-18 15:22 | Hospitalist Progress Note ---
Date of Service May 18, 2021 Assessment & Plan (1) Acute hypoxemic respiratory failure: Plan: Patient is an 81 yr female with H/O 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 Denies fever/chills. Is vaccinated for COVID-19. Acute respiratory failure with hypoxia Respiratory syncytial virus infection -CXR:No pneumothorax. Age indeterminate fractures of the anterior left fifth and sixth ribs. Mild left basilar opacity which favors atelectasis. -Negative COVID Screen -Positive for RSV Blood cultures pending Procalcitonin Normal Started on low dose prednisone Continue bronchodilators Supplemental oxygen as needed Incentive spirometry, flutter valve Diarrhea Check stool for C. 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 (5) Thyroid cancer: Plan: S/p thyroidectomy TSH: 0.4 Continue levothyroxine (6) HLD (hyperlipidemia): Plan: Continue rosuvastatin (7) Colon cancer: Plan: S/p colon resection Hyperlipidemia on Statin Hypothyroidism Continue levothyroxine DVT Px Lovenox SQ Code Status DNR/DNI Admission and Anticipated Discharge Date Admission Date: May 17, 2021 Subjective Patient is seen and examined at bedside Less cough, dyspnea today Still has diarrhea No other complaints Review of Systems Review of Systems: All systems reviewed & are unremarkable except as noted in Subjective Physical Exam Physical Exam: Physical Exam: Vitals signs as noted above General Appearance:Obese, no apparent distress Head: normocephalic, Atraumatic Eyes: normal inspection, EOMI Neck: supple, Trachea midline Respiratory/Chest: Coarse breath sounds, scattered wheezing Cardiovascular: S1, S2, No murmur Abdomen/GI:Soft, Non tender, Bowel sounds present Extremities/Musculoskeletal:normal inspection, no edema Neurologic/Psych:AAOX3, grossly no focal neurological deficits Skin: normal color, warm Results & Data Results & Data ([facility]) Vital Signs (Past 12 Hours) Vital Signs Temp Pulse Pulse Resp BP BP Pulse Ox 05/18/21 11:46 05/18/21 11:06 72 16 94 05/18/21 07:44 37.5 C 96 H 89 20 120/67 92 05/18/21 07:20 89 16 93 05/18/21 04:00 37.6 C H 89 18 134/73 93 Pulse Ox Pulse Ox Pulse Ox 05/18/21 11:46 96 96 94 05/18/21 11:06 05/18/21 07:44 05/18/21 07:20 05/18/21 04:00 Laboratory Results Short CBC 05/18/21 Range/Units 11:38 WBC 7.65 (4.8-10.8) K/uL Hgb 13.3 (12.0-16.0) g/dL Hct 42.1 (37-47) % Plt Count 119 L (130-400) K/uL BMP 05/18/21 11:38 Sodium 141 Potassium 3.9 Chloride 105 Carbon Dioxide 32 BUN 15 Creatinine 0.81 Glucose 98 Calcium 7.7 L Urine 05/17/21 Range/Units 16:30 Urine Color Yellow Urine Appearance Clear (Clear) Urine pH 6.0 (4.5-7.5) Ur Specific [place] 1.011 (1.000-1.030) Urine Protein Negative (Negative) Urine Glucose (UA) Negative (Negative) (1) UTI (urinary tract infection) Hematuria presence: without hematuria Urinary tract infection type: site unspecified Qualified Code(s): N39.0 - Urinary tract infection, site not specified (2) Closed rib fracture Encounter type: initial encounter Laterality: left Rib fracture type: multiple ribs Qualified Code(s): S22.42XA - Multiple fractures of ribs, left side, initial encounter for closed fracture
[2021-05-18] MEDS: cefTRIAXone SODIUM 2,000 MG in DEXTROSE 5% 50 ML IV SCH (16:12)
[2021-05-18] MEDS: predniSONE 20 MG TAB PO SCH (16:54)
[2021-05-19] MEDS ORDERED: POTASSIUM CHLORIDE 10 MEQ TABCR PO STA (00:27)
--- NOTE | 2021-05-19 00:28 | Communication Note ---
Date of Service: May 19, 2021 Made aware by RN of 9 beats of atrial tachycardia around 12:25 AM. Patient asymptomatic as per RN during episode. Currently NSR. AP Asymptomatic paroxysmal atrial tachycardia ? Secondary to albuterol Rule out electrolyte abnormality Change albuterol to Xopenex Check electrolytes Will relay to AM provider.
[2021-05-19] MEDS ORDERED: IPRATROPIUM BROMIDE NEB SOLN 0.02% 2.5 ML VIAL INH SCH (01:00)
[2021-05-19] MEDS ORDERED: LEVALBUTEROL HCL 0.63 MG/3 ML NEB NEB SCH (01:00)
[2021-05-19 01:01] LABS: Basophils # (auto) 0.02 K/uL (0-0.2); Basophils % (auto) 0.3 %; Hemoglobin 13.3 g/dL (12.0-16.0); Immature Granulocytes # (auto) 0.02 K/uL (0.00-0.02); Immature Granulocytes % (auto) 0.3 %; Lymphocytes # (auto) 1.32 K/uL (1.2-3.4); Lymphocytes % (auto) 19.6 %; Mean Corpuscular Hemoglobin 31.4 pg (25-34); Mean Corpuscular Hgb Conc 32.4 g/dL (32-36); Mean Corpuscular Volume 96.7 fL (80-100); Mean Platelet Volume 10.8 fL (7.4-10.4); Monocytes # (auto) 0.19 K/uL (0.11-0.59); Monocytes % (auto) 2.8 %; Platelet Count 138 K/uL (130-400); RDW Coefficient of Variation 13.5 % (11.5-14.5); RDW Standard Deviation 47.5 fL (36.4-46.3); Red Blood Count 4.24 M/uL (4.2-5.4); White Blood Count 6.75 K/uL (4.8-10.8)
[2021-05-19 01:17] LABS: BUN Creatinine Ratio 20.1 (10-20); Calcium 8.2 mg/dl (8.5-10.1); Creatinine Clr Calc Pharmacy 80.3 ml/min; Est GFR (African American) 95.3 ml/min; Est GFR (Non-African American) 82.2 ml/min; Magnesium 2.3 mg/dl (1.8-2.4); Potassium 4.2 mmol/L (3.5-5.1)
[2021-05-19] MEDS: LEVOTHYROXINE SODIUM 150 MCG TABLET PO SCH (05:34)
[2021-05-19] MEDS ORDERED: XOPENEX/ATROVENT 0.63mg/0.5MG NEB COMBO NEB SCH (07:00)
[2021-05-19] MEDS: IPRATROPIUM BROMIDE NEB SOLN 0.02% 2.5 ML VIAL INH SCH ×3 (07:19→19:17)
[2021-05-19] MEDS: LEVALBUTEROL HCL 0.63 MG/3 ML NEB NEB SCH ×3 (07:19→19:17)
[2021-05-19] MEDS: MULTIVITAMIN TAB PO SCH (09:00)
[2021-05-19] MEDS: BETHANECHOL CHL 25 MG TAB PO SCH ×3 (09:00→21:10)
[2021-05-19] MEDS: GABAPENTIN 300 MG CAP PO SCH ×3 (09:00→21:11)
[2021-05-19] MEDS: predniSONE 20 MG TAB PO SCH ×2 (09:01→21:12)
[2021-05-19] MEDS: RALOXIFENE HCL 60 MG TAB PO SCH (09:01)
[2021-05-19] MEDS: DULoxetine HCL 20 MG CAP PO SCH (09:01)
[2021-05-19] MEDS: ROSUVASTATIN CALCIUM 10 MG TAB PO SCH (09:01)
[2021-05-19] MEDS: LIDOCAINE 5% 1 PATCH TD SCH (09:02)
[2021-05-19] MEDS: cefTRIAXone SODIUM 2,000 MG in DEXTROSE 5% 50 ML IV SCH (15:48)
--- NOTE | 2021-05-19 16:07 | Hospitalist Progress Note ---
Date of Service May 19, 2021 Assessment & Plan (1) Acute hypoxemic respiratory failure: Plan: Patient is an 81 yr female with H/O 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 Denies fever/chills. Is vaccinated for COVID-19. Acute respiratory failure with hypoxia Respiratory syncytial virus infection -CXR:No pneumothorax. Age indeterminate fractures of the anterior left fifth and sixth ribs. Mild left basilar opacity which favors atelectasis. -Negative COVID Screen -Positive for RSV Blood cultures Negative to date Procalcitonin Normal Crease prednisone to 20 mg twice daily Continue bronchodilators Supplemental oxygen as needed Incentive spirometry, flutter valve Wean off of supplemental oxygen as able May need 2 step prior to discharge Diarrhea Check stool for C. 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 (5) Thyroid cancer: Plan: S/p thyroidectomy TSH: 0.4 Continue levothyroxine (6) HLD (hyperlipidemia): Plan: Continue rosuvastatin (7) Colon cancer: Plan: S/p colon resection Hyperlipidemia on Statin Hypothyroidism Continue levothyroxine DVT Px Lovenox SQ Code Status DNR/DNI Admission and Anticipated Discharge Date Admission Date: May 17, 2021 Subjective Patient is seen and examined at bedside Subjectively feels better today Continues to have left rib pain cough, dyspnea slowly improving Diarrhea resolved Review of Systems Review of Systems: All systems reviewed & are unremarkable except as noted in Subjective Physical Exam Physical Exam: Physical Exam: Vitals signs as noted above General Appearance:Obese, no apparent distress Head: normocephalic, Atraumatic Eyes: normal inspection, EOMI Neck: supple, Trachea midline Respiratory/Chest: Coarse breath sounds, scattered B/L wheezing Cardiovascular: S1, S2, No murmur Abdomen/GI:Soft, Non tender, Bowel sounds present Extremities/Musculoskeletal:normal inspection, no edema Neurologic/Psych:AAOX3, grossly no focal neurological deficits Skin: normal color, warm Results & Data Results & Data ([facility]) Vital Signs (Past 12 Hours) Vital Signs Temp Pulse Pulse Resp BP BP Pulse Ox 05/19/21 15:55 36.8 C 76 20 146/73 H 92 05/19/21 12:31 84 20 98 05/19/21 11:35 36.8 C 73 20 131/78 93 05/19/21 07:43 36.5 C 73 22 135/79 91 05/19/21 07:26 66 05/19/21 07:20 78 20 96 Laboratory Results Short CBC 05/19/21 Range/Units 00:52 WBC 6.75 (4.8-10.8) K/uL Hgb 13.3 (12.0-16.0) g/dL Hct 41.0 (37-47) % Plt Count 138 (130-400) K/uL BMP 05/19/21 00:52 Sodium 139 Potassium 4.2 Chloride 106 Carbon Dioxide 31 BUN 14 Creatinine 0.69 Glucose 146 H Calcium 8.2 L (1) UTI (urinary tract infection) Hematuria presence: without hematuria Urinary tract infection type: site unspecified Qualified Code(s): N39.0 - Urinary tract infection, site not specified (2) Closed rib fracture Encounter type: initial encounter Laterality: left Rib fracture type: multiple ribs Qualified Code(s): S22.42XA - Multiple fractures of ribs, left side, initial encounter for closed fracture
[2021-05-19] MEDS: DOCUSATE SODIUM/SENNA 50/8.6MG TAB PO SCH (21:11)
[2021-05-19] MEDS: ENOXAPARIN INJ 40 MG/0.4 ML SYR SQ SCH (21:11)
[2021-05-19] MEDS: traZODone HCL 50 MG TAB PO SCH (21:12)
[2021-05-20] MEDS: LEVALBUTEROL HCL 0.63 MG/3 ML NEB NEB SCH ×3 (01:00→13:27)
[2021-05-20] MEDS: IPRATROPIUM BROMIDE NEB SOLN 0.02% 2.5 ML VIAL INH SCH ×3 (01:00→13:27)
[2021-05-20] MEDS: LEVOTHYROXINE SODIUM 150 MCG TABLET PO SCH (05:46)
[2021-05-20] MEDS: DULoxetine HCL 20 MG CAP PO SCH (09:12)
[2021-05-20] MEDS: BETHANECHOL CHL 25 MG TAB PO SCH ×3 (09:12→20:34)
[2021-05-20] MEDS: LIDOCAINE 5% 1 PATCH TD SCH (09:13)
[2021-05-20] MEDS: GABAPENTIN 300 MG CAP PO SCH ×3 (09:13→20:36)
[2021-05-20] MEDS: RALOXIFENE HCL 60 MG TAB PO SCH (09:14)
[2021-05-20] MEDS: ROSUVASTATIN CALCIUM 10 MG TAB PO SCH (09:14)
[2021-05-20] MEDS: predniSONE 20 MG TAB PO SCH ×2 (09:14→20:37)
[2021-05-20] MEDS: MULTIVITAMIN TAB PO SCH (09:14)
[2021-05-20] MEDS ORDERED: LEVALBUTEROL HCL 0.63 MG/3 ML NEB NEB PRN (13:46)
--- NOTE | 2021-05-20 15:24 | Hospitalist Progress Note ---
Date of Service May 20, 2021 Assessment & Plan (1) Acute hypoxemic respiratory failure: Plan: Patient is an 81 yr female with H/O 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 Denies fever/chills. Is vaccinated for COVID-19. Acute respiratory failure with hypoxia Respiratory syncytial virus infection -CXR:No pneumothorax. Age indeterminate fractures of the anterior left fifth and sixth ribs. Mild left basilar opacity which favors atelectasis. -Negative COVID Screen -Positive for RSV Blood cultures Negative to date Procalcitonin Normal Continue bronchodilators PRN Supplemental oxygen as needed Incentive spirometry, flutter valve Wean off of supplemental oxygen as able May need 2 step prior to discharge Continue prednisone to 20 mg twice daily Saturating low 90s on 2 L of supplemental oxygen Diarrhea Likely due to above Stool for C diff Negative (2) UTI (urinary tract infection): Plan: UTI ruled out Urine culture Negative Received Rocephin (3) Closed rib fracture: Plan: History fall 2 weeks ago CXR: Anterior left fifth and sixth age-indeterminate rib fractures Lidocaine patch Incentive spirometer (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: Left breast s/p chemo and radiation (5) Thyroid cancer: Plan: S/p thyroidectomy TSH: 0.4 Continue levothyroxine (6) HLD (hyperlipidemia): Plan: Continue rosuvastatin (7) Colon cancer: Plan: S/p colon resection Hyperlipidemia on Statin Hypothyroidism Continue levothyroxine DVT Px Lovenox SQ Code Status DNR/DNI Admission and Anticipated Discharge Date Admission Date: May 17, 2021 Subjective Patient is seen and examined at bedside Continues to feel better No new complaints Cough, dyspnea much improved Review of Systems Review of Systems: All systems reviewed & are unremarkable except as noted in Subjective Physical Exam Physical Exam: Physical Exam: Vitals signs as noted above General Appearance:Obese, no apparent distress Head: normocephalic, Atraumatic Eyes: normal inspection, EOMI Neck: supple, Trachea midline Respiratory/Chest: Decreased breath sounds, CTA Cardiovascular: S1, S2, No murmur Abdomen/GI:Soft, Non tender, Bowel sounds present Extremities/Musculoskeletal:normal inspection, no edema Neurologic/Psych:AAOX3, grossly no focal neurological deficits Skin: normal color, warm Results & Data Results & Data ([facility]) Vital Signs (Past 12 Hours) Vital Signs Temp Pulse Pulse Resp BP BP Pulse Ox 05/20/21 15:19 90 05/20/21 13:28 75 18 91 05/20/21 11:47 36.9 C 77 18 122/75 93 05/20/21 07:55 83 05/20/21 07:40 77 19 92 05/20/21 07:00 36.9 C 82 20 143/79 H 91 05/20/21 03:28 37.0 C 80 18 166/80 H 93 (1) UTI (urinary tract infection) Hematuria presence: without hematuria Urinary tract infection type: site unspecified Qualified Code(s): N39.0 - Urinary tract infection, site not specified (2) Closed rib fracture Encounter type: initial encounter Laterality: left Rib fracture type: multiple ribs Qualified Code(s): S22.42XA - Multiple fractures of ribs, left side, initial encounter for closed fracture
[2021-05-20] MEDS: cefTRIAXone SODIUM 2,000 MG in DEXTROSE 5% 50 ML IV SCH (16:01)
[2021-05-20] MEDS: ENOXAPARIN INJ 40 MG/0.4 ML SYR SQ SCH (20:35)
[2021-05-20] MEDS: DOCUSATE SODIUM/SENNA 50/8.6MG TAB PO SCH (20:35)
[2021-05-20] MEDS: traZODone HCL 50 MG TAB PO SCH (20:37)
[2021-05-21] MEDS: LEVOTHYROXINE SODIUM 150 MCG TABLET PO SCH (06:16)
[2021-05-21] MEDS: RALOXIFENE HCL 60 MG TAB PO SCH (09:09)
[2021-05-21] MEDS: MULTIVITAMIN TAB PO SCH (09:09)
[2021-05-21] MEDS: ROSUVASTATIN CALCIUM 10 MG TAB PO SCH (09:09)
[2021-05-21] MEDS: DULoxetine HCL 20 MG CAP PO SCH (09:09)
[2021-05-21] MEDS: predniSONE 20 MG TAB PO SCH (09:09)
[2021-05-21] MEDS: BETHANECHOL CHL 25 MG TAB PO SCH ×2 (09:10→14:18)
[2021-05-21] MEDS: LIDOCAINE 5% 1 PATCH TD SCH (09:10)
[2021-05-21] MEDS: GABAPENTIN 300 MG CAP PO SCH ×2 (09:10→14:18)
--- NOTE | 2021-05-21 11:45 | Hospitalist Progress Note ---
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 Denies fever/chills. Is vaccinated for COVID-19. Acute respiratory failure with hypoxia Respiratory syncytial virus infection -CXR:No pneumothorax. Age indeterminate fractures of the anterior left fifth and sixth ribs. Mild left basilar opacity which favors atelectasis. 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 (5) Thyroid cancer: Plan: S/p thyroidectomy TSH: 0.4 Continue levothyroxine (6) HLD (hyperlipidemia): Plan: Continue rosuvastatin (7) Colon cancer: Plan: S/p colon resection Hyperlipidemia on Statin Hypothyroidism Continue levothyroxine DVT Px Lovenox SQ Code Status DNR/DNI Disposition Home Admission and Anticipated Discharge Date Admission Date: May 17, 2021 Subjective Patient is seen and examined at bedside Minimal Cough Had 2 step: did not qualify for oxygen Denies chest pain, dyspnea, dizziness, nausea, abd pain Plan to discharge home today Review of Systems Review of Systems: All systems reviewed & are unremarkable except as noted in Subjective Physical Exam Physical Exam: Physical Exam: Vitals signs as noted above General Appearance:Obese, no apparent distress Head: normocephalic, Atraumatic Eyes: normal inspection, EOMI Neck: supple, Trachea midline Respiratory/Chest: Decreased breath sounds, CTA Cardiovascular: S1, S2, No murmur Abdomen/GI:Soft, Non tender, Bowel sounds present Extremities/Musculoskeletal:normal inspection, no edema Neurologic/Psych:AAOX3, grossly no focal neurological deficits Skin: normal color, warm Results & Data Results & Data ([facility]) Vital Signs (Past 12 Hours) Vital Signs Temp Pulse Pulse Pulse Pulse Resp Resp 05/21/21 11:00 37.0 C 66 20 05/21/21 09:50 109 H 105 H 98 H 20 05/21/21 07:00 36.9 C 77 20 05/21/21 03:00 37 C 66 16 Resp Resp BP BP Pulse Ox Pulse Ox Pulse Ox 05/21/21 11:00 147/80 H 92 05/21/21 09:50 20 18 96 91 05/21/21 07:00 147/79 H 94 05/21/21 03:00 133/70 93 Pulse Ox 05/21/21 11:00 05/21/21 09:50 92 05/21/21 07:00 05/21/21 03:00 (1) UTI (urinary tract infection) Hematuria presence: without hematuria Urinary tract infection type: site unspecified Qualified Code(s): N39.0 - Urinary tract infection, site not specified (2) Closed rib fracture Encounter type: initial encounter Laterality: left Rib fracture type: multiple ribs Qualified Code(s): S22.42XA - Multiple fractures of ribs, left side, initial encounter for closed fracture
--- NOTE | 2021-05-21 11:49 | Discharge Summary ---
Date of Service May 21, 2021 Admission HPI Per Admitting Provider Patient is 81-year-old female with PMH 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 Patient reports cough initially productive however now does not feels productive. Increased shortness of breath last night. Patient reports PCP placed on Z-Candido 2 days ago. Patient has not had any improvement. States yesterday had diarrhea. Complaining of frontal headache past 2 days. Also complains of nasal congestion. Denies loss of taste or smell. States has urinary frequency. Denies dysuria, hematuria patient reports had a fall 2 weeks ago and when she fell she reports she hit her head and felt like things went black for a second. Patient reports remembers incident and denies any recurrent falls, syncope or dizziness. Since fall she has had left chest wall discomfort, aggravated with coughing and movement. Reports had 2 doses COVID-19 vaccine. She reports family members ill with upper respiratory symptoms. Denies fever/chills, diaphoresis, N/V/C, vision changes, neck pain, palpitations, sore throat, choking, otalgia, abdominal pain, paresthesias, weakness, extremity weakness, extremity edema, rashes. In ER patient afebrile, no tachycardia or tachypnea, BP stable. Was noted to desaturate to 82% on room air up to 95% on 4 L oxygen via nasal cannula. No leukocytosis. CXR: Left basilar opacity, left fifth and sixth anterior age- indeterminate rib fractures. UA + nitrite, 1+ leuk esterase, 4+ bacteria. In ER was given 1L NSS, doxycycline p.o., Rocephin 2 g IV, albuterol neb Admission Exam Per Admitting Provider Physical Exam Physical Exam: General: no acute distress, overweight Head: normocephalic, atraumatic Eyes: conjunctiva non-injected, anicteric ENT: hard of hearing, normal inspection external ears, nose, mucous membranes moist Neck: supple, trachea midline Lungs: On 4L oxygen via NC with sat 95%, able to speak in sentences, +diffuse wheezing throughout CV: RRR, no murmur, no pretibial edema; left chest wall: no ecchymosis, +tenderness to palpation lateral chest wall Abd: normal BS, soft, non-tender Ext: no cyanosis, no calf tenderness Neuro: A&O x 3, no focal deficits noted, normal affect Skin: warm, dry Principal Diagnosis Acute respiratory failure with hypoxia Respiratory syncytial virus infection Closed rib fracture Discharge Data Allergies Allergy/AdvReac Type Severity Reaction Status Date / Time niacin Allergy Unknown FLUSHING Verified 07/07/19 14:19 AND DIZZINESS amoxicillin AdvReac Intermediate UTI'S Verified 07/07/19 14:19 Consultations 05/17/21 16:37 ED Decision to Admit Stat Hospital Course (1) Acute hypoxemic respiratory failure: Patient is an 81 yr female with H/O 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 Denies fever/chills. Is vaccinated for COVID-19. Acute respiratory failure with hypoxia Respiratory syncytial virus infection -CXR:No pneumothorax. Age indeterminate fractures of the anterior left fifth and sixth ribs. Mild left basilar opacity which favors atelectasis. -Negative COVID Screen -Positive for RSV Blood cultures Negative to date Procalcitonin Normal Continue bronchodilators PRN Supplemental oxygen as needed Incentive spirometry, flutter valve Weaned off of oxygen 2 step: Did not require oxygen Taper off of prednisone Diarrhea Likely due to above Stool for C diff Negative (2) UTI (urinary tract infection): UTI ruled out Urine culture Negative Received Rocephin empirically (3) Closed rib fracture: History fall 2 weeks ago CXR: Anterior left fifth and sixth age-indeterminate rib fractures Lidocaine patch Incentive spirometer (4) Carcinoma in situ of breast: Left breast s/p chemo and radiation (5) Thyroid cancer: S/p thyroidectomy TSH: 0.4 Continue levothyroxine (6) HLD (hyperlipidemia): Continue rosuvastatin (7) Colon cancer: S/p colon resection Hyperlipidemia on Statin Hypothyroidism Continue levothyroxine DVT Px Lovenox SQ Code Status DNR/DNI Disposition Home Total Time Total Time Spent Total Time Spent (In Minutes): 44 minutes Discharge Plan Discharge Items Patient Disposition: Home - Self-Care Reason For Visit: HYPOXIA Discharge Diagnosis: Acute respiratory failure with hypoxia Respiratory syncytial virus infection Closed rib fracture Activity: Per Instructions section Exercise/Sports: Gradually increase as tolerated Non-emergency contact: Primary Care Provider Call non-emergency contact if: you have any medication questions, your symptoms worsen, your pain is not controlled, your pain is concerning for you and you have a fever Follow-up/Referrals: Anuj Ramos [Primary Care Provider] - 05/27/21 2:00 pm (TELEPHONE VISIT B ETWEEN 3PM-5PM. THE PHYSICIAN WILL CALL YOU.) Diet: Regular Addtl Attending Provider Instructions: Follow-up with your primary care physician Dr. Ramos on 05/27/21 at 2:00PM ---Complete the prednisone course as prescribed. ----Your blood cultures are pending at the time of discharge. Follow-up with your physician for results. Seek immediate medical attention if your symptoms reoccur or worsen Please take all medications as instructed on discharge list below. Please call if you have any questions or problems. You can reach a [facility] hospitalist on duty at [facility] 24 hours a day by calling [phone] Pending Studies at Discharge: Yes Studies:: Blood Cultures Stand-Alone Forms: My [facility], Smoking Cessation Medications and DC Order Prescriptions: New prednisone 20 mg Tablet 20 mg PO DAILY Qty: 3 RF: 0 Continued trazodone 50 mg tablet 50 mg PO HS RF: 0 rosuvastatin 10 mg tablet 10 mg PO DAILY RF: 0 duloxetine 20 mg capsule,delayed release(DR/EC) 20 mg PO DAILY RF: 0 Senna Plus 8.6-50 mg capsule 2 cap PO HS RF: 0 gabapentin 300 mg tablet 300 mg PO UD RF: 0 bethanechol chloride 50 mg tablet 50 mg PO TID RF: 0 multivitamin [Daily Multi-Vitamin] tablet 1 tab PO DAILY RF: 0 diclofenac sodium [Voltaren] 1 % gel 2 gm TOP .COMPLEX RF: 0 levothyroxine 150 mcg tablet 150 mcg PO DAILY RF: 0 raloxifene 60 mg tablet 60 mg PO DAILY RF: 0 omega-3 fatty acids [Fish Oil Concentrate] 1,000 mg capsule 1,000 mg PO DAILY RF: 0 ascorbate calcium (vitamin C) 500 mg tablet 500 mg PO DAILY RF: 0 Discharge Orders: Discharge Order (Routine); Ordered 05/21/21 Ordered By: Ramon Vo Admission Data Admit Date/Time: 05/17/21 17:53 Attending Provider: Ramon Vo Admit Provider: Ramon Vo Primary Care Provider: Anuj Ramos Other Providers: Ramon Vo Other Interventions: Discharge Summary Assessment (RN) Last Done: 05/21/21 11:51
== END 2021-05-21 15:10 | disposition home or self-care (01) | DRG 189 ==
LOC: ED 12:05 → 2W 17:53